=== PATIENT | male | born 1950 | race Caucasian/White ===

== ENCOUNTER 2020-10-09 11:30 | Emergency (ER) | payer MEDICARE ==
[2020-10-09 13:05] LABS: BASOPHIL 0.9 % (0-2); EOSINOPHIL 3.5 % (0-7); HCT 40.1 % (42.0-52.0); HGB 12.5 g/dl (13.2-18.0); LYMPHOCYTE 14.5 % (15-48); MCH 28.3 pg (25.0-31.0); MCHC 31.2 g/dL (32.0-36.0); MCV 90.9 fL (78.0-100.0); MONOCYTE 9.4 % (0-12); MPV 9.4 fL (6.0-9.5); NEUTROPHIL 71.1 % (41-80); NRBC 0; PLT 560 K/uL (150-400); RBC 4.41 M/uL (4.70-6.00); RDW 13.2 % (11.5-14.0)
[2020-10-09 13:15] LABS: INR 1.17 (0.9-1.2); PROTHROMBIN TIME 14.3 SECONDS (11.8-13.4)
[2020-10-09 13:16] LABS: PTT 33.9 SECONDS (24.4-34.7)
[2020-10-09 13:17] LABS: D-DIMER 2.5 ug/mLFEU (0.00-0.41)
[2020-10-09 13:51] LABS: PRO-BNP 277 pg/mL (<125)
[2020-10-09 13:54] LABS: ALBUMIN 3.2 g/dL (3.4-5.0); BILIRUBIN - TOTAL 0.2 mg/dL (0.2-1.0); BUN/CREAT RATIO (CALC) 13.8 RATIO; CREATININE 1.38 mg/dL (0.67-1.17); GLOBULIN (CALCULATION) 5.2 g/dL; POTASSIUM 4.3 mmol/L (3.5-5.1); TOTAL PROTEIN 8.4 g/dL (6.4-8.2)
[2020-10-09] MEDS ORDERED: NORCO 5-325 TA1 EACH PO (16:40)
== END 2020-10-09 17:30 | disposition home or self-care (01) ==
LOC: FER 11:30
PROVIDERS: Emergency Medicine
DX: R09.1 Pleurisy (principal); R91.1 Solitary pulmonary nodule; C34.90 Malignant neoplasm of unspecified part of unspecified bronchus or lung; I10 Essential (primary) hypertension; Z79.899 Other long term (current) drug therapy; Z20.822 Contact with and (suspected) exposure to COVID-19
CPT/HCPCS: 36415; 36600; 71045; 71275; 80053; 82803; 83880; 84484; 85025; 85379; 85610; 85730; 87040; 93005; Q9967; U0002

== ENCOUNTER 2020-12-08 12:47 | Emergency (ER) | payer MEDICARE ==
[~2020-12-08 12:47] MED LIST: NORCO 5-325 TA1 EACH PO
[2020-12-08 13:46] LABS: BASOPHIL 0.5 % (0-2); EOSINOPHIL 0.8 % (0-7); HCT 40.5 % (42.0-52.0); HGB 12.5 g/dl (13.2-18.0); LYMPHOCYTE 11.6 % (15-48); MCH 28.2 pg (25.0-31.0); MCHC 30.9 g/dL (32.0-36.0); MCV 91.4 fL (78.0-100.0); MONOCYTE 8.5 % (0-12); MPV 9.8 fL (6.0-9.5); NEUTROPHIL 78.1 % (41-80); NRBC 0; PLT 390 K/uL (150-400); RBC 4.43 M/uL (4.70-6.00); RDW 14.4 % (11.5-14.0); WBC 11.8 K/uL (4.0-10.5)
[2020-12-08 14:03] LABS: BUN/CREAT RATIO (CALC) 15.7 RATIO; CREATININE 1.78 mg/dL (0.67-1.17); POTASSIUM 4.6 mmol/L (3.5-5.1)
== END 2020-12-08 15:20 | disposition home or self-care (01) ==
LOC: FER 12:47
PROVIDERS: Nurse Practitioner Family
DX: T14.8XXA Other injury of unspecified body region, initial encounter (principal); J90 Pleural effusion, not elsewhere classified; I10 Essential (primary) hypertension; Z88.0 Allergy status to penicillin; Z79.899 Other long term (current) drug therapy
CPT/HCPCS: 36415; 71045; 80048; 85025; J2930